=== PATIENT | male | born 1990 | race Hispanic/Latino ===

== ENCOUNTER 2018-09-02 13:23 | Emergency (ER) | payer SELFPAY ==
[2018-09-02] MEDS ORDERED: KEFLEX500 M1 PO (14:23)
[2018-09-02 14:30] VITALS: BP 118/66
== END 2018-09-02 14:30 | disposition home or self-care (01) | DRG 605 ==
LOC: ED 13:23
PROC: 0HQGXZZ Repair Left Hand Skin, External Approach (ICD-10-PCS; principal; 2018-09-02)
DX: S61.012A Laceration without foreign body of left thumb without damage to nail, initial encounter (principal); W26.0XXA Contact with knife, initial encounter; Y93.G1 Activity, food preparation and clean up; Y92.000 Kitchen of unspecified non-institutional (private) residence as the place of occurrence of the external cause